=== PATIENT | male | born 1995 | race Caucasian/White ===

== ENCOUNTER 2020-06-30 18:46 | Emergency (ER) | payer OTHER ==
[~2020-06-30] VITALS: Ht 182.9 cm; Wt 88.5 kg
[2020-06-30] MEDS ORDERED: BACTRIM DS TAB1 EACH PO (20:51)
[2020-06-30] MEDS ORDERED: NAPROXEN375 MG PO (20:51)
== END 2020-06-30 21:12 | disposition home or self-care (01) ==
LOC: ER 18:46
DX: S01.352A Open bite of left ear, initial encounter (principal); W54.0XXA Bitten by dog, initial encounter; Y93.89 Activity, other specified; Y92.89 Other specified places as the place of occurrence of the external cause; Y99.8 Other external cause status

== ENCOUNTER 2020-07-08 12:18 | Emergency (ER) | payer OTHER ==
[~2020-07-08] VITALS: Ht 182.9 cm; Wt 88.5 kg
[~2020-07-08 12:18] MED LIST: BACTRIM DS TAB1 EACH PO; NAPROXEN375 MG PO
== END 2020-07-08 14:23 | disposition home or self-care (01) ==
LOC: ER 12:18
DX: Z48.02 Encounter for removal of sutures (principal)